=== PATIENT | female | born 1975 | race Caucasian/White ===

== ENCOUNTER 2017-02-08 17:08 | Emergency (ER) | payer OTHER ==
[2017-02-08 18:46] LABS: BASOPHIL 0.7 % (0-2); HCT 38.1 % (37.0-47.0); HGB 12.8 g/dl (12.5-16.0); LYMPHOCYTE 29.6 % (15-48); MCH 31.2 pg (25.0-31.0); MCHC 33.6 g/dL (32.0-36.0); MCV 92.9 fL (78.0-100.0); MONOCYTE 6.5 % (0-12); NEUTROPHIL 59.2 % (41-80); PLT 248 K/uL (150-400); WBC 7.2 K/uL (4.0-10.5)
[2017-02-08 19:02] LABS: BILIRUBIN - TOTAL 0.2 mg/dL (0.1-1.0); CREATININE 0.6 mg/dL (0.5-1.0); GLOBULIN (CALCULATION) 2.5 g/dL (2.2-4.2); POTASSIUM 4.1 mmol/L (3.5-5.1); TOTAL PROTEIN 6.5 g/dL (6.4-8.3)
== END 2017-02-08 20:15 | disposition home or self-care (01) ==
LOC: FER 17:08
PROVIDERS: Emergency Medicine
DX: J20.9 Acute bronchitis, unspecified (principal); J45.909 Unspecified asthma, uncomplicated; F17.210 Nicotine dependence, cigarettes, uncomplicated; Z88.0 Allergy status to penicillin; Z88.5 Allergy status to narcotic agent; Z79.51 Long term (current) use of inhaled steroids
CPT/HCPCS: 36415; 71020; 80053; 85025; 94640; J2930

== ENCOUNTER 2022-04-02 22:12 | Emergency (ER) | payer SELFPAY ==
[~2022-04-02 22:12] MED LIST: ALBUTEROL2.5 MG/3 M NEB; BENTYL10 MG PO; MEDROL 4MG DOSEP4 MG PO; NORCO 5-325 TA1 EACH PO; PROVENTIL2 MG/5 ML PO; TESSALON PERLE100 M1 PO; VENTOLIN (2.5 MG/3 M INH; VENTOLIN HFA IN18 GM INH; ZEGERID 20 MG1 EACH PO; ZOVIRAX800 M1 PO
[2022-04-02 23:49] LABS: BASOPHIL 0.6 % (0-2); EOSINOPHIL 2.1 % (0-5); HCT 38.3 % (37.0-47.0); HGB 12.8 g/dl (12.5-16.0); LYMPHOCYTE 28.4 % (15-48); MCH 31.3 pg (25.0-31.0); MCHC 33.4 g/dL (32.0-36.0); MCV 93.6 fL (78.0-100.0); MONOCYTE 5.9 % (0-12); MPV 10.8 fL (6.0-9.5); NEUTROPHIL 62.9 % (41-80); NRBC 0; PLT 193 K/uL (150-400); RBC 4.09 M/uL (4.20-5.40); RDW 12.4 % (11.5-14.0); WBC 8.2 K/uL (4.0-10.5)
[2022-04-03 00:09] LABS: ALBUMIN 3.6 g/dL (3.4-5.0); BILIRUBIN - TOTAL 0.3 mg/dL (0.2-1.0); BUN/CREAT RATIO (CALC) 14.5 RATIO; CREATININE 0.62 mg/dL (0.51-0.95); GLOBULIN (CALCULATION) 3.3 g/dL; POTASSIUM 3.8 mmol/L (3.5-5.1); TOTAL PROTEIN 6.9 g/dL (6.4-8.2)
[2022-04-03 00:26] LABS: CORONAVIRUS 2019 SARS-COV-2 NEGATIVE (NEGATIVE); INFLUENZA A NAA NEGATIVE (NEGATIVE)
== END 2022-04-03 03:51 | disposition home or self-care (01) ==
LOC: FER 22:12
PROVIDERS: Emergency Medicine
DX: R06.00 Dyspnea, unspecified (principal); R00.2 Palpitations; R42 Dizziness and giddiness; J45.909 Unspecified asthma, uncomplicated; F17.200 Nicotine dependence, unspecified, uncomplicated; Z88.0 Allergy status to penicillin; Z88.5 Allergy status to narcotic agent; Z20.822 Contact with and (suspected) exposure to COVID-19; Z28.310 Unvaccinated for COVID-19
CPT/HCPCS: 36415; 71045; 71275; 80053; 84484; 84703; 85025; 85379; 93005; J2930; J7030; Q9967; U0002

== ENCOUNTER 2022-07-26 20:58 | Emergency (ER) | payer OTHER ==
[2022-07-26 22:17] LABS: INFLUENZA A NAA NEGATIVE (NEGATIVE)
[2022-07-26 22:20] LABS: CORONAVIRUS 2019 SARS-COV-2 POSITIVE (NEGATIVE)
[2022-07-26] MEDS ORDERED: PAXLOVID 150-11 EACH PO (22:28)
== END 2022-07-26 22:48 | disposition home or self-care (01) ==
LOC: FER 20:58
PROVIDERS: Physician Assistant
DX: U07.1 COVID-19 (principal); J45.909 Unspecified asthma, uncomplicated; F17.210 Nicotine dependence, cigarettes, uncomplicated; Z88.0 Allergy status to penicillin; Z88.5 Allergy status to narcotic agent
CPT/HCPCS: 71046; 94640; 94664; U0002

== ENCOUNTER 2022-08-03 19:13 | Emergency (ER) | payer OTHER ==
[~2022-08-03 19:13] MED LIST changes: +PAXLOVID 150-11 EACH PO
== END 2022-08-03 21:15 | disposition left against medical advice (07) ==
LOC: FER 19:13
DX: R51.9 Headache, unspecified (principal); Z86.16 Personal history of COVID-19; Z53.29 Procedure and treatment not carried out because of patient's decision for other reasons; Z28.310 Unvaccinated for COVID-19
CPT/HCPCS: 99281